=== PATIENT | male | born 1945 | race Hispanic/Latino ===

== ENCOUNTER 2017-10-13 10:56 | Emergency (ER) | payer OTHER ==
[~2017-10-13 10:56] MED LIST: ALBU8.5H8 IH; ASPI-1012 PO; ATOR10 PO; ATROVENT IH; CILO100T PO; CLOP75TA32 PO; EZET10 PO; FLUT1DIS4 IH; GLIP1TAB5 PO; OMEG300C3 PO; PREG75 PO; SENIOR MULTIVITAMIN PO
[2017-10-13] MEDS ORDERED: ACETAMINOPHEN-CODEINE 300/30MG TAB ONE (11:22)
[2017-10-13] MEDS ORDERED: IBUPROFEN 400 MG TABLET ONE (11:23)
[2017-10-13] MEDS ORDERED: DOXYCYCLINE HYCLATE 100 MG TABLET PO ONE (11:23)
== END 2017-10-13 12:54 | disposition home or self-care (01) ==
LOC: EDH 10:56
DX: L02.215 Cutaneous abscess of perineum (principal); E11.9 Type 2 diabetes mellitus without complications; I10 Essential (primary) hypertension; I25.2 Old myocardial infarction; Z87.891 Personal history of nicotine dependence; Z95.2 Presence of prosthetic heart valve

== ENCOUNTER → 2018-07-30 | Outpatient (CLI) | payer OTHER | END | disposition home or self-care (01) | LOC: SHCH 06-13 08:45 | PROVIDERS: ATTEND Internal Medicine Cardiovascular Disease | DX: I73.9 Peripheral vascular disease, unspecified (principal); I65.23 Occlusion and stenosis of bilateral carotid arteries; I35.8 Other nonrheumatic aortic valve disorders; I72.9 Aneurysm of unspecified site; E11.9 Type 2 diabetes mellitus without complications | CPT/HCPCS: 93306; 93880; 93925; 93978 ==

== ENCOUNTER 2018-09-02 05:50 | Day surgery (SDC) | payer OTHER ==
[2018-08-30 13:02] VITALS: BP 173/83
[2018-08-30 13:07] LABS: BASOPHILS % (AUTO) 0.8 % (0.0-5.0); EOSINOPHILS % (AUTO) 4.4 % (0.0-8.0); HEMATOCRIT 35.6 % (42-54); LYMPHOCYTES % (AUTO) 21.5 % (21.0-51.0); MEAN CORPUSCULAR HEMOGLOBIN 24.2 pg (27.0-33.0); MEAN CORPUSCULAR HGB CONC 31.2 g/dL (32.0-36.0); MEAN CORPUSCULAR VOLUME 77.7 fL (79-99); MONOCYTES % (AUTO) 7.6 % (3.0-13.0); NEUTROPHILS % (AUTO) 65.7 % (40.0-77.0); NUCLEATED RED BLOOD CELLS 0.1 % (0.0-0.19); PLATELET COUNT (AUTO) 282 K/uL (130-400); RED BLOOD CELL COUNT(AUTO) 4.59 MIL/uL (4.50-6.20); RED CELL DISTRIBUTION WIDTH 17.8 % (11.0-15.5); WHITE BLOOD COUNT (AUTO) 8.2 K/uL (4.8-10.8)
[2018-08-30 13:17] LABS: APPEARANCE,URINE Clear (CLEAR); BILIRUBIN,URINE Negative (NEGATIVE); COLOR,URINE Yellow (YELLOW); GLUCOSE, URINE (UA) >=1000 mg/dL (NEGATIVE); KETONES,URINE Negative (NEGATIVE); LEUKOCYTE ESTERASE ,URINE Negative (NEGATIVE); NITRATE,URINE Negative (NEGATIVE); OCCULT BLOOD,URINE Negative (NEGATIVE); PROTEIN,URINE POS 2+ (NEGATIVE); UROBILINOGEN,URINE 0.2 mg/dL (0.2-1.0)
[2018-08-30 13:19] LABS: BACTERIA,URINE Rare /HPF (None Seen); RBC,URINE 0-1 /HPF (0-1); SQUAMOUS EPITHELIAL CELL,UR Rare /HPF (0-2); WBC,URINE 0-1 /HPF (0-1)
[2018-08-30 13:20] LABS: CREATININE 0.8 mg/dL (0.5-1.5); POTASSIUM 4.4 mmol/L (3.5-5.1)
[2018-08-30 13:22] LABS: INR 0.97 (0.85-1.15); PARTIAL THROMBOPLASTIN TIME 31.5 SEC (26.3-35.5); PROTHROMBIN TIME 10.2 SEC (9.6-11.6)
[2018-09-02] VITALS (10 sets, daily range): BP systolic 96–144; BP diastolic 42–66
[~2018-09-02] VITALS: Ht 171.4 cm; Wt 56.9 kg
[~2018-09-02 05:50] MED LIST changes: +AEC81 PO; -ALBU8.5H8 IH; -ASPI-1012 PO; +ATROVENT HFA IH; -ATROVENT IH; -CLOP75TA32 PO; +EMPA10TA PO; -FLUT1DIS4 IH; +GABA-531 PO; -OMEG300C3 PO; -PREG75 PO; -SENIOR MULTIVITAMIN PO; +VENTOLIN HFA IH
[2018-09-02] MEDS ORDERED: SODIUM CHLORIDE 0.9% 1000ML 1,000 ML IV ONE (06:32)
[2018-09-02] MEDS ORDERED: NITROGLYCERIN 5 MG/ML 10 ML VIAL IV ONE (07:19)
[2018-09-02] MEDS ORDERED: IODIXANOL 320 MG/ML 100 ML VIAL ONE (07:19)
[2018-09-02] MEDS ORDERED: HEPARIN SODIUM 1000UNIT/ML 10ML VIAL ONE (07:19)
[2018-09-02] MEDS ORDERED: LIDOCAINE HCL 2% 20ML ONE (07:20)
[2018-09-02] MEDS ORDERED: VERAPAMIL HCL 2.5 MG/ML VIAL ONE (07:48)
[2018-09-02] MEDS ORDERED: CLOP75TA14 PO (07:48)
[2018-09-02] MEDS ORDERED: MIDAZOLAM HCL 1 MG/ML 2ML VIAL ONE (07:49)
[2018-09-02] MEDS ORDERED: FENTANYL CITRATE PF 50 MCG/1 ML 2ML VIAL ONE (07:49)
[2018-09-02] MEDS ORDERED: HYDRALAZINE HCL 20 MG/ML VIAL ONE (08:38)
[2018-09-02] MEDS ORDERED: PROTAMINE SULFATE 10 MG/ML 25ML VIAL IV ONE (08:38)
[2018-09-02] MEDS ORDERED: SODIUM CHLORIDE 0.9% 1000ML 1,000 ML IV SCH (08:51)
[2018-09-02] MEDS ORDERED: ACETAMINOPHEN-CODEINE 300/30MG TAB PO PRN (09:00)
[2018-09-02] MEDS ORDERED: METOPROLOL TARTRATE 1 MG/ML 5ML VIAL IV PRN (09:00)
[2018-09-02] MEDS ORDERED: DEXTROSE 50%-WATER 50 ML DISP.SYRIN IV PRN (09:00)
[2018-09-02] MEDS ORDERED: GLUCAGON 1MG KIT 1 MG ML IM PRN (09:00)
[2018-09-02] MEDS ORDERED: INSULIN HUMULIN R 100 UNIT/ML 3ML SQ SCH (11:30)
== END 2018-09-02 15:00 | disposition home or self-care (01) ==
LOC: DAH 05:50
PROVIDERS: ATTEND Internal Medicine Cardiovascular Disease
DX: I70.213 Atherosclerosis of native arteries of extremities with intermittent claudication, bilateral legs (principal); E11.51 Type 2 diabetes mellitus with diabetic peripheral angiopathy without gangrene; I65.23 Occlusion and stenosis of bilateral carotid arteries; J44.9 Chronic obstructive pulmonary disease, unspecified; F17.200 Nicotine dependence, unspecified, uncomplicated; I21.3 ST elevation (STEMI) myocardial infarction of unspecified site; Z95.1 Presence of aortocoronary bypass graft; E11.42 Type 2 diabetes mellitus with diabetic polyneuropathy; E78.5 Hyperlipidemia, unspecified; I10 Essential (primary) hypertension; Z79.899 Other long term (current) drug therapy; Z98.890 Other specified postprocedural states; I25.10 Atherosclerotic heart disease of native coronary artery without angina pectoris
CPT/HCPCS: 36200; 36415 ×2; 71045; 75630; 80048; 81001; 82948 ×3; 83880; 85025; 85347; 85610; 85730; 93005; A4606; C1769; C1893; C1894 ×2; J0360; J1644 ×2; J1815; J2250; J2720; J3010; J3490 ×2; J7030; Q9967; 99156; 99157

== ENCOUNTER → 2018-09-13 | Outpatient (CLI) | payer OTHER ==
[~2018-09-13] MED LIST changes: +CLOP75TA14 PO; +IOHEXOL 350 MG/ML 100ML INFUS..BTL IV ONE
== END | disposition home or self-care (01) ==
LOC: RAH 09:37
PROVIDERS: ATTEND Internal Medicine Cardiovascular Disease
DX: I71.3 Abdominal aortic aneurysm, ruptured (principal); I70.1 Atherosclerosis of renal artery; K46.0 Unspecified abdominal hernia with obstruction, without gangrene; M47.895 Other spondylosis, thoracolumbar region; J44.9 Chronic obstructive pulmonary disease, unspecified; I70.90 Unspecified atherosclerosis
CPT/HCPCS: 74174; Q9967

== ENCOUNTER 2018-12-04 18:24 | Emergency (ER) | payer OTHER ==
[~2018-12-04 18:24] MED LIST changes: -AEC81 PO; +ASPI-1012 PO; -ATOR10 PO; +ATOR10TA69 PO; -ATROVENT HFA IH; -CLOP75TA14 PO; -EZET10 PO; +EZET10TA26 PO; +FURO20TA4 PO; -IOHEXOL 350 MG/ML 100ML INFUS..BTL IV ONE; -VENTOLIN HFA IH
[2018-12-04] MEDS ORDERED: ONDANSETRON HCL 4 MG/2 ML VIAL ONE (18:45)
[2018-12-04 18:50] LABS: BASOPHILS % (AUTO) 0.6 % (0.0-5.0); EOSINOPHILS % (AUTO) 0.4 % (0.0-8.0); HEMATOCRIT 38.6 % (42-54); LYMPHOCYTES % (AUTO) 19.5 % (21.0-51.0); MEAN CORPUSCULAR HEMOGLOBIN 20.6 pg (27.0-33.0); MEAN CORPUSCULAR HGB CONC 29.4 g/dL (32.0-36.0); MEAN CORPUSCULAR VOLUME 70.2 fL (79-99); MONOCYTES % (AUTO) 10.4 % (3.0-13.0); NEUTROPHILS % (AUTO) 69.1 % (40.0-77.0); NUCLEATED RED BLOOD CELLS 0.6 % (0.0-0.19); PLATELET COUNT (AUTO) 267 K/uL (130-400); RED BLOOD CELL COUNT(AUTO) 5.49 MIL/uL (4.50-6.20); RED CELL DISTRIBUTION WIDTH 22.1 % (11.0-15.5); WHITE BLOOD COUNT (AUTO) 8.1 K/uL (4.8-10.8)
[2018-12-04 19:01] LABS: CREATININE 1.5 mg/dL (0.5-1.5); POTASSIUM 4.9 mmol/L (3.5-5.1)
[2018-12-04 19:06] LABS: INR 1.25 (0.85-1.15); PARTIAL THROMBOPLASTIN TIME 31.8 SEC (26.3-35.5); PROTHROMBIN TIME 13.1 SEC (9.6-11.6)
[2018-12-04] MEDS ORDERED: OCTYL 2-CYANOACRYLATE 1 EACH TP ONE (19:09)
[2018-12-04] MEDS ORDERED: INSULIN HUMULIN R 100 UNIT/ML 3ML ONE (19:10)
[2018-12-04] MEDS ORDERED: MORPHINE SULFATE 4 MG/1ML SYG ONE (19:21)
[2018-12-07] MEDS ORDERED: THEO400T3 PO (08:28)
[2018-12-07] MEDS ORDERED: PARO10TA71 PO (08:28)
[2018-12-07] MEDS ORDERED: PRED5TAB PO (08:28)
[2018-12-07] MEDS ORDERED: FLUC100T8 PO (08:28)
[2018-12-07] MEDS ORDERED: ALPR0.255 PO (08:28)
[2018-12-07] MEDS ORDERED: ONDA4TAB9 PO (08:28)
[2018-12-07] MEDS ORDERED: RIVA2.5T PO (08:28)
[2018-12-07] MEDS ORDERED: PANT40TA25 PO (08:28)
== END 2018-12-04 20:17 | disposition home or self-care (01) ==
LOC: EDH 18:24
DX: S01.111A Laceration without foreign body of right eyelid and periocular area, initial encounter (principal); S40.811A Abrasion of right upper arm, initial encounter; J44.9 Chronic obstructive pulmonary disease, unspecified; I10 Essential (primary) hypertension; E11.9 Type 2 diabetes mellitus without complications; I25.2 Old myocardial infarction; Z98.890 Other specified postprocedural states; Z87.891 Personal history of nicotine dependence; W18.39XA Other fall on same level, initial encounter; Y93.01 Activity, walking, marching and hiking; Y92.89 Other specified places as the place of occurrence of the external cause; Y99.8 Other external cause status
CPT/HCPCS: 12051; 36415; 70450; 80048; 85025; 85610; 85730; 96374; 96375; 99285; J1815; J2270; J2405

== ENCOUNTER 2018-12-12 16:34 | Inpatient (IN) | payer OTHER | END 2018-12-14 03:10 | disposition EXP | LOC: 4CH 16:34 | DX: J44.1 Chronic obstructive pulmonary disease with (acute) exacerbation (principal) ==